=== PATIENT | female | born 1995 | race Caucasian/White ===

== ENCOUNTER 2018-02-05 01:33 | Observation (INO) ==
[2018-02-05 02:35] LABS: Bilirubin,Urine Negative (Negative); Blood,Urine Negative (Negative); Clarity,Urine Clear (Clear); Color,Urine Yellow (Yellow); Glucose,Urine (UA) Normal (Normal); Ketones,Urine Negative (Negative); Leukocyte Esterase,Urine Negative (Negative); Nitrite,Urine Negative (Negative); Protein,Urine Negative (Neg-Trace); Specific Gravity,Urine 1.021 (1.010-1.025); Urobilinogen,Urine Normal (Normal)
[2018-02-05 02:44] LABS: Amphetamine Screen,Urine Negative ng/mL (Cutoff=1000); Barbiturate Screen,Urine Negative ng/mL (Cutoff=200); Benzodiazepines Screen,Urine Negative ng/mL (Cutoff=200); Cannabinoid Screen,Urine Negative ng/mL (Cutoff = 50); Cocaine Screen,Urine Negative ng/mL (Cutoff= 300); Opiate Screen,Urine Negative ng/mL (Cutoff=300); Phencyclidine Screen,Urine Negative ng/mL (Cutoff=25)
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
[2018-02-05 03:33] LABS: Blood Urea Nitrogen 10 mg/dL (6-20); Carbon Dioxide 28 mEq/L (23-29); Chloride 108 mEq/L (98-107); Potassium 3.5 mEq/L (3.5-5.1); Sodium 141 mEq/L (136-145)
[2018-02-05 03:34] LABS: Acetaminophen < 10 mcg/mL (10-20); BUN/Creatinine Ratio 16 (6-26); Calcium 9.4 mg/dL (8.6-10.3); Ethanol < 10 mg/dL (Less than 10); Glucose 111 mg/dL (70-105); Osmolality,Calculated 292 (280-300); Salicylate < 2.5 mg/dL (15.0-30.0); eGFR For Non-African Americans > 60 (> 60)
[2018-02-05 03:36] LABS: Basophils % 0.4 %; Eosinophils % 0.6 %; Hematocrit 40.4 % (35.3-44.9); Hemoglobin 13.7 g/dL (11.5-15.4); Immature Granulocytes % 0.3 % (0-4); Lymphocytes # 1.7 K/mcL (0.6-4.6); Lymphocytes % 23.7 %; Mean Corpuscular HGB Conc 33.9 g/dL (31.6-35.5); Mean Corpuscular Hemoglobin 29.7 pg (28.0-33.3); Mean Corpuscular Volume 87.6 fL (83.0-100.0); Mean Platelet Volume 10.9 fL (9.4-12.4); Monocytes # 0.5 K/mcL (0.0-1.3); Monocytes % 6.5 %; Platelet Count 241 K/mcL (140-400); Red Blood Count 4.61 M/mcL (3.82-4.97); Red Cell Distribution Width 12.5 % (11.5-14.5); Segmented Neutrophils % 68.5 %
[2018-02-05] MEDS ORDERED: hydrOXYzine pamoate 25 MG CAPSULE PO PRN (05:49)
[2018-02-05] MEDS ORDERED: Acetaminophen 325 MG TABLET PO PRN (05:49)
[2018-02-05] MEDS ORDERED: *HR* LORazepam 2 MG/ML VIAL IM PRN (05:49)
[2018-02-05] MEDS ORDERED: Mag Hydrox/Al Hydrox/Simeth 30 ML UDC PO PRN (05:49)
[2018-02-05] MEDS ORDERED: Haloperidol Lactate 5 MG/ML VIAL IM PRN (05:49)
[2018-02-05] MEDS ORDERED: MOM Conc 10 ML UD.LIQ PO PRN (05:49)
[2018-02-05] MEDS ORDERED: *HR* LORazepam 1 MG TABLET PO PRN (05:49)
[2018-02-05 06:45] LABS: Candida DNA Not Detected (Not Detect); Gardnerella DNA Not Detected (Not Detect); Trichomonas DNA Not Detected (Not Detect)
[2018-02-05 11:17] VITALS: BP 114/78
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
== END 2018-02-05 12:20 | disposition home or self-care (01) ==
LOC: 1ANU 01:33 → EMEROOARM 01:33 → 1ANU 06:18
PROVIDERS: ADMIT Psychiatry & Neurology Psychiatry; ATTEND Psychiatry & Neurology Psychiatry